=== PATIENT | female | born 1960 ===

== ENCOUNTER 2017-05-04 11:48 | Emergency (ER) | payer SELFPAY ==
[2017-05-04] MEDS ORDERED: Cyclobenzaprine TAB* 10 MG PO ONE (13:44)
[2017-05-04] MEDS ORDERED: predniSONE TAB* 20 MG PO ONE (13:44)
[2017-05-04] MEDS ORDERED: Ketorolac INJ* 60 MG/2 ML VIAL IM ONE (13:45)
--- NOTE | 2017-05-04 13:50 | ED ---
Back Pain - HPI Summary HPI Summary: 56 female presents with complaints of upper back pain that began 2-3 weeks ago and has been worsening since. Patient described the pain to be spasms that worse with movement and when she has no upper back support. 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 Denies any recent trauma or injury. Patient denies abdominal pain, nausea, vomiting and any PMHx. Changing positions also worsens back pain. Has never had anything like this before. Denies redness, swelling and bruising. Has been taking 1-2 ibuprofen a day without much relief. Patient states the pain originates on the right side of her shoulder/back and radiates down into her right arm. Admits to an episode of tingling of right hand last night, that has since improved. She is right hand dominant. Has not taken any medication today. No daily medications. No lower back pain or neck pain. - History of Current Complaint Chief Complaint: UCBackPain Stated Complaint: BACK PAIN Time Seen by Provider: 05/04/17 12:30 Hx Obtained From: Patient Onset/Duration: Gradual Onset, Lasting Weeks, Still Present, Worse Since Onset/Duration: Started Weeks Ago - 2-3, Atraumatic - no known trauma or injury Timing: Constant Back Pain Location: Is Discrete @ - right upper back/shoulder Severity Initially: Moderate Severity Currently: Severe Pain Intensity: 9 Pain Scale Used: 0-10 Numeric Character: Aching, Throbbing, Spasmodic Aggravating Symptom(s): Movement, Lifting Alleviating Symptom(s): Rest, Position, Heat - has been heating with some relief Associated Signs And Symptoms: Positive: Negative, Tingling - right fingers x 1 episode, resolved. Negative: Swelling, Redness, Bruising, Weakness, Numbness, Bladder Incontinence, Bowel Incontinence, Pain with Weight Bearing - Risk Factors AAA Risk Factors: Negative TAD Risk Factors: Negative Cauda Equina Risk Factors: Negative Epidural Abscess Risk Factors: Negative - Allergies/Home Medications Allergies/Adverse Reactions: Allergies Allergy/AdvReac Type Severity Reaction Status Date / Time No Known Allergies Allergy Verified 05/04/17 11:57 PMH/Surg Hx/FS Hx/Imm Hx Endocrine/Hematology History: Denies: Hx Diabetes, Hx Thyroid Disease Cardiovascular History: Denies: Hx Hypertension Respiratory History: Denies: Hx Asthma, Hx Chronic Obstructive Pulmonary Disease (COPD) GI History: Denies: Hx Ulcer - Immunization History Immunizations Up to Date: Yes Infectious Disease History: No Infectious Disease History: Reports: Traveled Outside the [place] in Last 30 Days - Da Denies: Hx Clostridium Difficile, Hx Hepatitis, Hx Human Immunodeficiency Virus (HIV), Hx of Known/Suspected MRSA, Hx Shingles, Hx Tuberculosis, Hx Known/ Suspected VRE, Hx Known/Suspected VRSA, History Other Infectious Disease - Family History Known Family History: Positive: None - Social History Alcohol Use: Occasionally Substance Use Type: Reports: None Smoking Status (MU): Never Smoked Tobacco Review of Systems Constitutional: Negative Cardiovascular: Negative Respiratory: Negative Gastrointestinal: Negative Positive: Arthralgia, Myalgia - upper back/right shoulder/arm Skin: Negative Positive: Paresthesia - right fingers x 1 episode All Other Systems Reviewed And Are Negative: Yes Physical Exam Triage Information Reviewed: Yes Vital Signs On Initial Exam: Initial Vitals Temp Pulse Resp BP Pulse Ox 98.2 F 73 18 121/86 100 05/04/17 11:49 05/04/17 11:49 05/04/17 11:49 05/04/17 11:49 05/04/17 11:49 Vital Signs Reviewed: Yes Appearance: Positive: Well-Appearing, Well-Nourished, Pain Distress - mild constantly massaging and holding right shoulder/arm Skin: Positive: Warm, Skin Color Reflects Adequate Perfusion, Dry. Negative: Numb, Cyanosis @, Pale, Erythema @ Head/Face: Positive: Normal Head/Face Inspection Eyes: Positive: Conjunctiva Clear ENT: Positive: Hearing grossly normal Neck: Positive: Supple, Nontender Respiratory/Lung Sounds: Positive: Clear to Auscultation. Negative: Rales, Rhonchi, Wheezes Cardiovascular: Positive: Normal, RRR, Pulses are Symmetrical in both Upper and Lower Extremities - 2+ all extremities. Negative: Murmur, Rub Abdomen Description: Positive: Nontender, No Organomegaly. Negative: Bruit, CVA Tenderness (R), CVA Tenderness (L), Distended, Guarding, McBurney's Point Tenderness, Peritoneal Signs, Pulsatile Mass Bowel Sounds: Positive: Present Musculoskeletal: Positive: Normal, Strength/ROM Intact, Pain @ - with movement of right upper extremity and twisting neck and back however, able., Other - no crepitus, obvious deformity, ecchymosis, edema or step off. no bony tenderness. Negative: Interruption @, Edema Left, Edema Right Neurological: Positive: Normal - neuro exam normal, Sensory/Motor Intact - sensation intact, Alert, Oriented to Person Place, Time, CN Intact II-III, Reflexes Intact, NV Bundle Intact Distally, Normal Gait Psychiatric: Positive: Affect/Mood Appropriate - Rogers Coma Scale Best Eye Response: 4 - Spontaneous Best Motor Response: 6 - Obeys Commands Best Verbal Response: 5 - Oriented Diagnostics - Vital Signs Vital Signs Temp Pulse Resp BP Pulse Ox 05/04/17 11:49 98.2 F 73 18 121/86 100 - Laboratory Lab Statement: Any lab studies that have been ordered have been reviewed, and results considered in the medical decision making process. - Radiology cervical Xray Interpretation: No Acute Changes - STRAIGHTENING OF THE CERVICAL LORDOSIS. MILD DEGENERATIVE DISC DISEASE AND OSTEOARTHRITIS Radiology Interpretation Completed By: Radiologist thoracic Xray Interpretation: No Acute Changes - No fracture of the thoracic spine is noted. Radiology Interpretation Completed By: Radiologist Re-Evaluation - Re-Evaluation First Eval Re-Evaluation Time: 14:33 Change: Improved - had some relief after medications. aware of x-ray results, continue at home. ready to be d/c Back Pain Course/Dx - Course Course Of Treatment: x-rays of cervical and thoracic spine ordered to rule out arthritis/fracture and possible bony etiology (disc space etc). Were unremarkable. Given toradol, flexeril and prednisone while in UC. Had relief. Appears to be suffering from muscle strain/knot/spasm and will treat with steroid, muscle relaxer, pain management and anti-inflammatory medication. Aware of worsening signs and symptoms to watch out for. Follow up with PCP and back doctor if symptoms due not improve within the next week. Sooner if worsening symptoms occur as discussed. - Diagnoses Differential Diagnosis/HQI/PQRI: Positive: Fracture, Herniated Disc, Strain, Sprain Provider Diagnoses: Muscle strain, Muscle spasm of back Discharge - Discharge Plan Condition: Stable Disposition: HOME Prescriptions: Cyclobenzaprine TAB* [Flexeril 10 MG TAB*] 10 mg PO BEDTIME PRN #15 tab PRN Reason: Spasms predniSONE TAB* [Deltasone TAB*] 40 mg PO DAILY #8 tab Patient Education Materials: Muscle Strain (ED), Muscle Spasm (ED) Referrals: No Primary Care Phys,NOPCP [Primary Care Provider] - Gary Stout MD [Medical Doctor] - [facility] [place] [facility] [Outside] Additional Instructions: Continue taking medications prescribed as directed starting tomorrow as you already received today's dose. you may take 1 more flexeril (muscle relaxer) before bedtime tonight. Rest and apply warm compresses 20 minutes on and 20 minutes off as much as possible. Try and avoid over use (typing, computer use, physical activity etc). Massage. Take ibuprofen (600mg) or aleve (500mg) for pain and inflammation every 6-8 hours with food. Follow up with PCP. Follow up with Back doctor if symptoms do not improve after 1 week for possible further evaluation/imaging. If symptoms do not improve or worsen or new symptoms develop please seek medical attention promptly.
--- NOTE | 2017-05-04 14:26 | RAD ---
HISTORY: Pain and numbness COMPARISONS: None VIEWS: 3, Frontal, lateral, open-mouth odontoid, and bilateral oblique views of the cervical spine. FINDINGS: The cervical spine is visualized from the skull base through C7-T1. ALIGNMENT: There is straightening of the normal cervical lordosis. VERTEBRAL BODIES: The odontoid process is intact. The atlantoaxial intervals are symmetric. There is mild anterolateral marginal osteophyte formation, most pronounced at C4-C5 and C5-C6. JOINTS: There is no subluxation or dislocation. The facet joints are unremarkable. INTERVERTEBRAL DISCS: There is diffuse loss of intervertebral disc height. SOFT TISSUE: The prevertebral soft tissues are normal. OTHER: The skull base is normal. The lung apices are clear. IMPRESSION: STRAIGHTENING OF THE CERVICAL LORDOSIS. MILD DEGENERATIVE DISC DISEASE AND OSTEOARTHRITIS
--- NOTE | 2017-05-04 14:26 | RAD ---
Indication: Back pain. 2 views of the thoracic spine demonstrate vertebral bodies to be normal in height. Disc spaces all well-preserved. Pedicles appear intact. IMPRESSION: No fracture of the thoracic spine is noted.
== END 2017-05-04 14:50 | disposition home or self-care (01) ==
LOC: UCEAST 11:48
DX: S29.012A Strain of muscle and tendon of back wall of thorax, initial encounter (principal); M62.830 Muscle spasm of back
CPT/HCPCS: 72040; 72070; 96372; 99202; A9270-GY; G0463; J1885; J7512